=== PATIENT | female | born 1940 | race Caucasian/White ===

== ENCOUNTER 2019-07-13 06:02 | Observation (INO) | payer MEDICARE, BC ==
[2019-07-12 13:07] LABS: BASOPHILS # (AUTO) 0.1 X10'3 (0-0.2); BASOPHILS % (AUTO) 0.9 % (0-1); EOSINOPHILS # (AUTO) 0.2 X10'3 (0-0.9); EOSINOPHILS % (AUTO) 3.2 % (0-6); HEMATOCRIT 38.7 % (35.0-45.0); HEMOGLOBIN 13.5 g/dl (12.0-16.0); LYMPHOCYTES # (AUTO) 1.3 X10'3 (1.1-4.8); LYMPHOCYTES % (AUTO) 22.1 % (21-51); MEAN CORPUSCULAR HGB CONC 34.8 g/dL (33.0-36.5); MEAN PLATELET VOLUME 9.4 FL (7.4-10.4); MONOCYTES # (AUTO) 0.4 X10'3 (0-0.9); MONOCYTES % (AUTO) 7.1 % (2-12); NEUTROPHILS # (AUTO) 3.9 X10'3 (1.8-7.7); NEUTROPHILS % (AUTO) 66.7 % (42-75); PLATELET COUNT 179 X10'3 (140-440); RED BLOOD COUNT 4.35 X10'6 (4.20-5.60); RED CELL DISTRIBUTION WIDTH 12.8 % (11.5-14.5); WHITE BLOOD COUNT 5.8 X10'3 (4.5-11.0)
[2019-07-12 13:17] LABS: ALBUMIN 3.8 G/DL (3.4-5.0); ANION GAP 7 (8-16); BLOOD UREA NITROGEN 12 MG/DL (7-18); BUN/CREATININE RATIO 15.6 (6.6-38.0); CALCIUM 9.1 MG/DL (8.5-10.1); CHLORIDE 103 MMOL/L (99-107); CREATININE 0.77 MG/DL (0.40-0.90); GLUCOSE 91 MG/DL (70-104); PARTIAL THROMBOPLASTIN TIME 28 SECONDS (22-32); POTASSIUM 3.9 MMOL/L (3.5-5.1); SODIUM 141 MMOL/L (135-145); TOTAL CARBON DIOXIDE 30.7 MMOL/L (24-32); eGFR 73 ML/MIN
[~2019-07-13] VITALS: Ht 172.7 cm; Wt 61.1 kg
[2019-07-13] VITALS (15 sets, daily range): BP systolic 136–179; BP diastolic 50–79
[2019-07-13] MEDS ORDERED: cefazolin/dext.iso 2gm/100ml 100 ML IV ONE (06:25)
[2019-07-13] MEDS ORDERED: normal saline 1000ml 1,000 ML IV SCH (06:25)
[2019-07-13] MEDS ORDERED: METO25TA6 PO (06:26)
[2019-07-13] MEDS ORDERED: ATOR20TA PO (06:26)
[2019-07-13] MEDS ORDERED: LISI40TA4 PO (06:26)
[2019-07-13] MEDS ORDERED: AMLO5TAB PO (06:26)
[2019-07-13] MEDS ORDERED: ceFAZolin 1000mg inj ONE (07:46)
[2019-07-13] MEDS ORDERED: fentaNYL/PF 50MCG/1 ML 2ML syringe ONE ×3 (07:46→13:07)
[2019-07-13] MEDS ORDERED: midazolam 2 mg/2 ml injection ONE ×3 (07:46→08:46)
[2019-07-13] MEDS ORDERED: LIDOcaine 1% W/epiNEPHrine 1:100,000 20ml vial ONE ×2 (07:46→08:34)
[2019-07-13] MEDS ORDERED: proCHLORperazine 10 MG/2 ml inj ONE (08:39)
[2019-07-13] MEDS ORDERED: DOPamine 400mg/D5W 250ml 250 ML IV ONE (08:58)
[2019-07-13] MEDS ORDERED: HYDROcodone/acetaminophen 5mg/325mg tablet PO PRN (10:50)
[2019-07-13] MEDS ORDERED: vancomycin/NS 1 GM ADD-VANTAGE 250 ML IV ONE (10:55)
[2019-07-13] MEDS ORDERED: normal saline 1000ml 1,000 ML IV ONE (10:55)
[2019-07-13] MEDS: HYDROcodone/acetaminophen 10/325mg tab PO PRN ×3 (10:58→20:08)
[2019-07-13] MEDS ORDERED: fentaNYL/PF 50MCG/1 ML 2ML syringe IV PRN (12:55)
[2019-07-13] MEDS ORDERED: LIDOcaine 1% (10mg/ml) 2ml vial SQ ONE (12:55)
[2019-07-13] MEDS: metoprolol tartrate 25mg tablet PO SCH (17:11)
--- NOTE | 2019-07-13 18:04 | NUR ---
Patient in room 313. I have received report from Taj at short stay and had the opportunity to ask questions and assume patient care.
[2019-07-13] MEDS ORDERED: atorvastatin 20mg tablet PO SCH (21:00)
[2019-07-14] VITALS (9 sets, daily range): BP systolic 106–178; BP diastolic 57–86
[2019-07-14] MEDS: HYDROcodone/acetaminophen 10/325mg tab PO PRN (03:26)
--- NOTE | 2019-07-14 06:27 | NUR ---
Problems reprioritized. Patient report given, questions answered & plan of care reviewed with Diane SHIELDS.
--- NOTE | 2019-07-14 06:40 | NUR ---
Patient in room MED 313. I have received report from ALYSON Mendes and had the opportunity to ask questions and assume patient care.
[2019-07-14] MEDS ORDERED: lisinopril 20mg tablet PO SCH ×2 (08:00→09:04)
[2019-07-14] MEDS ORDERED: amLODIPine 5mg tablet PO SCH ×2 (08:00→09:04)
[2019-07-14] MEDS: metoprolol tartrate 25mg tablet PO SCH (09:07)
[2019-07-14] MEDS ORDERED: midazolam 2 mg/2 ml injection ONE (10:39)
[2019-07-14] MEDS ORDERED: fentaNYL/PF 50MCG/1 ML 2ML syringe ONE (10:39)
[2019-07-14] MEDS ORDERED: METO25TA6 PO (14:56)
[2019-07-14] MEDS ORDERED: CEPH250T PO (14:56)
--- NOTE | 2019-07-14 19:10 | NUR ---
pt. discharged from facility at 1345. pt. was wheeled down to personal car by staff accompanied by her . pt. understood and signed all paperwork. pt. IV was d/c intact. all meds were faxed to her pharmacy at [facility] on [address]. pt. has f/u appointments made already and discussed with her and her . pt. left with all belongings.
== END 2019-07-14 15:45 | disposition home or self-care (01) ==
LOC: SSTAY O 06:02 → MED 3N 18:36
PROVIDERS: ADMIT Internal Medicine Cardiovascular Disease; ATTEND Internal Medicine Cardiovascular Disease
DX: I49.5 Sick sinus syndrome (principal); R42 Dizziness and giddiness; J93.9 Pneumothorax, unspecified; I10 Essential (primary) hypertension; E78.00 Pure hypercholesterolemia, unspecified; E78.5 Hyperlipidemia, unspecified; R40.4 Transient alteration of awareness; R60.0 Localized edema; I47.1 Supraventricular tachycardia; R53.83 Other fatigue; F32.9 Major depressive disorder, single episode, unspecified; Z95.0 Presence of cardiac pacemaker; Z90.710 Acquired absence of both cervix and uterus; Z87.891 Personal history of nicotine dependence; Z79.899 Other long term (current) drug therapy
CPT/HCPCS: 32557; 33208; 36415; 71045; 71046; 80048; 85025; 85610; 85730; 93005; 96361; 96365; 96366; 96367; 96372; C1785; C1898; G0378; J0690; J0780; J1265; J2250; J3010; J3370; J7030; 99152; 99153; A4565; A4620